=== PATIENT | male | born 1970 | race Hispanic/Latino ===

== ENCOUNTER 2019-09-13 16:43 | Inpatient (IN) | payer OTHER ==
[~2019-09-13] VITALS: Ht 167.6 cm; Wt 65.5 kg
[2019-09-13] VITALS (9 sets, daily range): BP systolic 104–134; BP diastolic 58–75
[2019-09-13] MEDS ORDERED: NITROGLYCERIN 2 MG/VIAL VIAL IV ONE (16:52)
[2019-09-13] MEDS ORDERED: HEPARIN SODIUM 1000UNIT/ML 10ML VIAL ONE (16:52)
[2019-09-13] MEDS ORDERED: IOHEXOL-350 50ML VIAL IV ONE (16:52)
[2019-09-13] MEDS ORDERED: MIDAZOLAM HCL 1 MG/ML 2ML VIAL ONE (16:53)
[2019-09-13] MEDS ORDERED: IOHEXOL 350 MG/ML 100ML INFUS..BTL IV ONE (16:53)
[2019-09-13] MEDS ORDERED: LIDOCAINE HCL 2% 20ML ONE (16:53)
[2019-09-13] MEDS ORDERED: FENTANYL CITRATE PF 50 MCG/1 ML 2ML VIAL ONE (16:55)
[2019-09-13 17:11] LABS: BASOPHILS % (AUTO) 0.3 % (0.0-5.0); EOSINOPHILS % (AUTO) 1.8 % (0.0-8.0); HEMATOCRIT 47.4 % (42-54); LYMPHOCYTES % (AUTO) 20.4 % (21.0-51.0); MEAN CORPUSCULAR HEMOGLOBIN 30.1 pg (27.0-33.0); MEAN CORPUSCULAR HGB CONC 33.8 g/dL (32.0-36.0); MEAN CORPUSCULAR VOLUME 89.1 fL (79-99); MONOCYTES % (AUTO) 4.8 % (3.0-13.0); NEUTROPHILS % (AUTO) 72.5 % (40.0-77.0); PLATELET COUNT (AUTO) 206 K/uL (130-400); RED BLOOD CELL COUNT(AUTO) 5.32 MIL/uL (4.50-6.20); RED CELL DISTRIBUTION WIDTH 13.2 % (11.0-15.5); WHITE BLOOD COUNT (AUTO) 10.2 K/uL (4.8-10.8)
[2019-09-13 17:19] LABS: CREATININE 1.1 mg/dL (0.5-1.5); POTASSIUM 3.8 mmol/L (3.5-5.1)
[2019-09-13 17:23] LABS: INR 0.96 (0.85-1.15); PARTIAL THROMBOPLASTIN TIME 29.2 SEC (26.3-35.5); PROTHROMBIN TIME 10.4 SEC (9.6-11.6)
[2019-09-13 17:24] LABS: ALBUMIN 4.2 g/dL (3.5-5.0); BILIRUBIN,TOTAL 0.4 mg/dL (0.2-1.0); TOTAL PROTEIN, SERUM 7.8 g/dL (6.0-8.3)
[2019-09-13] MEDS ORDERED: SODIUM CHLORIDE 0.9% 10 ML VIAL IVP PRN (17:30)
[2019-09-13 18:20] LABS: HEMOGLOBIN A1C 5.7 % (4.0-6.0)
[2019-09-13 18:28] LABS: THYROID STIMULATING HORMONE 1.07 uIU/mL (0.36-3.74)
[2019-09-13] MEDS ORDERED: CARVEDILOL 12.5 MG TABLET PO SCH (21:00)
[2019-09-13] MEDS ORDERED: CARV12.580 PO (23:59)
[2019-09-13] MEDS ORDERED: ATOR-2 PO (23:59)
[2019-09-13] MEDS ORDERED: ASPI-556 PO (23:59)
[2019-09-14] VITALS (52 sets, daily range): BP systolic 87–172; BP diastolic 40–90
[2019-09-14 03:49] LABS: HEMATOCRIT 42.7 % (42-54); MEAN CORPUSCULAR HEMOGLOBIN 29.6 pg (27.0-33.0); MEAN CORPUSCULAR HGB CONC 33.3 g/dL (32.0-36.0); MEAN CORPUSCULAR VOLUME 89.1 fL (79-99); RED BLOOD CELL COUNT(AUTO) 4.79 MIL/uL (4.50-6.20); RED CELL DISTRIBUTION WIDTH 13.2 % (11.0-15.5); WHITE BLOOD COUNT (AUTO) 6.3 K/uL (4.8-10.8)
[2019-09-14 04:01] LABS: INR 1.01 (0.85-1.15); PARTIAL THROMBOPLASTIN TIME 29.2 SEC (26.3-35.5); PROTHROMBIN TIME 10.9 SEC (9.6-11.6)
[2019-09-14 04:09] LABS: ALBUMIN 3.5 g/dL (3.5-5.0); BILIRUBIN,TOTAL 0.5 mg/dL (0.2-1.0); CREATININE 0.9 mg/dL (0.5-1.5); POTASSIUM 3.9 mmol/L (3.5-5.1); TOTAL PROTEIN, SERUM 6.6 g/dL (6.0-8.3)
[2019-09-14] MEDS ORDERED: EPINEPHRINE 10 MG in SODIUM CHLORIDE 0.9% 240 ML IV PRN (06:45)
[2019-09-14] MEDS ORDERED: AMINOCAPROIC ACID 15,000 MG in SODIUM CHLORIDE 0.9% 500ML 420 ML IV PRN (06:45)
[2019-09-14] MEDS ORDERED: NOREPINEPHRINE BITARTRATE 8 MG in DEXTROSE 5%-WATER 250 ML IV PRN ×2 (06:45→21:15)
--- NOTE | 2019-09-14 07:30 | NUR ---
preop brought pt to holding in no distress via bed. pt here for cabg due to cad and unstable angina
--- NOTE | 2019-09-14 07:33 | NUR ---
INFO PATIENT OUT TO SURGERY.
[2019-09-14] MEDS ORDERED: NITROGLYCERIN 50 MG/D5% WATER 1 BOT ONE (07:48)
[2019-09-14] MEDS ORDERED: ESMOLOL HCL 10 MG/ML 10 ML VIAL ONE (08:05)
[2019-09-14] MEDS ORDERED: LIDOCAINE PF 2% 5ML ABBOJECT ONE ×2 (08:06→08:07)
[2019-09-14] MEDS ORDERED: ROCURONIUM 10MG/1ML SYR 10 MG/ML ML ONE (08:06)
[2019-09-14] MEDS ORDERED: PROTAMINE SULFATE 10 MG/ML 25ML VIAL IV ONE (08:06)
[2019-09-14] MEDS ORDERED: EPINEPHRINE 1 MG/ML AMPULE ONE (08:06)
[2019-09-14] MEDS ORDERED: HEPARIN SODIUM 1000UNIT/ML 10ML VIAL ONE (08:06)
[2019-09-14] MEDS ORDERED: AMINOCAPROIC ACID 250 MG/ML 20 ML VIAL IV ONE (08:06)
[2019-09-14] MEDS ORDERED: PROPOFOL 10 MG/ML 20ML VIAL IV ONE (08:06)
[2019-09-14] MEDS ORDERED: NOREPINEPHRINE BITARTRATE 1 MG/1 ML ML IV ONE (08:06)
[2019-09-14] MEDS ORDERED: MIDAZOLAM HCL 1 MG/ML 2ML VIAL ONE (08:06)
[2019-09-14] MEDS ORDERED: SODIUM BICARB 50MEQ 50ML VIAL ONE (08:06)
[2019-09-14] MEDS ORDERED: FENTANYL CITRATE PF 50 MCG/1 ML 20ML VIAL IJ ONE (08:06)
[2019-09-14] MEDS ORDERED: ETOMIDATE 2 MG/ML 10 ML VIAL ONE (08:08)
[2019-09-14] MEDS ORDERED: METOPROLOL TARTRATE 1 MG/ML 5ML VIAL IV ONE (08:10)
[2019-09-14] MEDS ORDERED: AMIODARONE HCL 50 MG/ML 3 ML VIAL ONE (08:11)
[2019-09-14] MEDS ORDERED: CEFAZOLIN SODIUM 1 GM VIAL ONE ×3 (08:12→11:56)
[2019-09-14] MEDS ORDERED: PAPAVERINE HCL 30 MG/ML 2ML VIAL ONE (08:57)
[2019-09-14] MEDS ORDERED: PANTOPRAZOLE SODIUM 40 MG TABLET.DR PO SCH (09:00)
[2019-09-14] MEDS: ASPIRIN 325MG EC TAB 325 MG TABLET.DR PO SCH (09:00)
[2019-09-14] MEDS: ATORVASTATIN CALCIUM 40 MG TABLET PO SCH (09:00)
[2019-09-14] MEDS: EZETIMIBE 10 MG TAB PO SCH (09:00)
[2019-09-14] MEDS ORDERED: ENOXAPARIN SODIUM 40 MG/0.4 ML SYRINGE SQ SCH (09:00)
[2019-09-14 09:05] LABS: ABG BASE EXCESS -2.8 mmol/L (-2.0-3.0); ABG HCO3 21.5 mmol/L (21.0-28.0); ABG OXYGEN SATURATION 99.4 % (95.0-99.0); ABG PCO2 36 mmHg (35-48)
[2019-09-14] MEDS ORDERED: DELNIDO FORMULA 1 BAG IV ONE (09:05)
[2019-09-14] MEDS ORDERED: OCTYL 2-CYANOACRYLATE 1 EACH TP ONE (09:48)
[2019-09-14] MEDS ORDERED: ROCURONIUM BROMIDE 10MG/1ML 5ML VL ONE (09:51)
[2019-09-14] MEDS ORDERED: SODIUM CHLORIDE 0.9% 500ML 500 ML IV SCH (10:25)
--- NOTE | 2019-09-14 10:27 | NUR ---
DCP Pt currently in procedure for CABG. Pending Criteria to be uploaded. CM pending to assess pt after procedure once stable. Endorsed to Veena ANGEL. CM to cont to follow up. Addendum: 09/14/19 at 1029 by ABRAM OH LVN CM Amended: Links added.
[2019-09-14 10:28] LABS: ABG BASE EXCESS -3.1 mmol/L (-2.0-3.0); ABG HCO3 20.1 mmol/L (21.0-28.0); ABG OXYGEN SATURATION 98.3 % (95.0-99.0); ABG PCO2 30 mmHg (35-48)
[2019-09-14] MEDS ORDERED: SODIUM CHLORIDE 0.9% 1000ML 1,000 ML IV SCH (10:30)
[2019-09-14] MEDS ORDERED: MORPHINE SULFATE 2 MG/ML 1ML SYG IV PRN (10:30)
[2019-09-14] MEDS ORDERED: POTASSIUM PHOS 15 mMOL+NS250ML 250 ML IV PRN (10:30)
[2019-09-14] MEDS ORDERED: ACETAMINOPHEN 325 MG TAB PO PRN ×2 (10:30)
[2019-09-14] MEDS ORDERED: SODIUM BICARB 50MEQ 50ML VIAL IV PRN (10:30)
[2019-09-14] MEDS ORDERED: AMINOCAPROIC ACID 15,000 MG in SODIUM CHLORIDE 0.9% 250 ML IV SCH (10:30)
[2019-09-14] MEDS ORDERED: MORPHINE SULFATE 4 MG/1ML SYG IV PRN (10:30)
[2019-09-14] MEDS ORDERED: ALBUMIN (HUMAN) 5% 250 ML IV PRN (10:30)
[2019-09-14] MEDS ORDERED: GLUCAGON 1MG KIT 1 MG ML IM PRN (10:30)
[2019-09-14] MEDS ORDERED: NOREPINEPHRINE 4MG/NS 250ML 250 ML IV PRN (10:30)
[2019-09-14] MEDS ORDERED: NITROGLYCERIN 50 MG/D5% WATER 250 BOT IV SCH (10:30)
[2019-09-14] MEDS ORDERED: INSULIN REGULAR, HUMAN 3ML 100 UNIT in SODIUM CHLORIDE 0.9% 99 ML IV SCH ×2 (10:30)
[2019-09-14] MEDS ORDERED: ONDANSETRON HCL 4 MG/2 ML VIAL IV PRN (10:30)
[2019-09-14] MEDS ORDERED: DEXTROSE 50%-WATER 50 ML DISP.SYRIN IV PRN (10:30)
[2019-09-14] MEDS ORDERED: EPINEPHRINE 10 MG in DEXTROSE 5%-WATER 250 ML IV PRN (10:30)
[2019-09-14] MEDS ORDERED: ACETAMINOPHEN 650 MG SUPPOSITORY RC PRN (10:30)
[2019-09-14] MEDS ORDERED: PROPOFOL 1000 MG/100 ML 100 ML IV PRN (10:30)
[2019-09-14] MEDS ORDERED: MAGNESIUM 2GM PREMIX 50ML 50 ML IV PRN (10:30)
[2019-09-14] MEDS ORDERED: TRAMADOL HCL 50 MG TABLET PO PRN (10:30)
[2019-09-14] MEDS ORDERED: SODIUM CHLORIDE 0.9% 10 ML VIAL IVP PRN (10:30)
[2019-09-14] MEDS ORDERED: CALCIUM GLUCONATE 1 GM in SODIUM CHLORIDE 0.9% 50 ML IV PRN (10:30)
[2019-09-14] MEDS ORDERED: SODIUM CHLORIDE 0.9% 1000ML 1,000 ML IV ONE (10:40)
[2019-09-14 11:03] LABS: ABG BASE EXCESS -2.7 mmol/L (-2.0-3.0); ABG HCO3 20.9 mmol/L (21.0-28.0); ABG PCO2 32 mmHg (35-48)
[2019-09-14 11:52] LABS: ABG BASE EXCESS 0.2 mmol/L (-2.0-3.0); ABG HCO3 24.2 mmol/L (21.0-28.0); ABG OXYGEN SATURATION 98.6 % (95.0-99.0); ABG PCO2 37 mmHg (35-48)
[2019-09-14 12:24] LABS: ABG HCO3 24.4 mmol/L (21.0-28.0); ABG OXYGEN SATURATION 98.6 % (95.0-99.0); ABG PCO2 30 mmHg (35-48)
[2019-09-14 13:19] LABS: MEAN CORPUSCULAR HGB CONC 33.5 g/dL (32.0-36.0); RED CELL DISTRIBUTION WIDTH 13.1 % (11.0-15.5)
[2019-09-14 13:21] LABS: HEMATOCRIT 36.4 % (42-54); MEAN CORPUSCULAR HEMOGLOBIN 29.9 pg (27.0-33.0); MEAN CORPUSCULAR VOLUME 89.2 fL (79-99); RED BLOOD CELL COUNT(AUTO) 4.08 MIL/uL (4.50-6.20); WHITE BLOOD COUNT (AUTO) 14.7 K/uL (4.8-10.8)
[2019-09-14 13:28] LABS: ABG BASE EXCESS -3.3 mmol/L (-2.0-3.0); ABG HCO3 21.1 mmol/L (21.0-28.0); ABG OXYGEN SATURATION 98.7 % (95.0-99.0); ABG PCO2 36 mmHg (35-48)
[2019-09-14 13:33] LABS: CREATININE 1.1 mg/dL (0.5-1.5); INR 1.29 (0.85-1.15); PARTIAL THROMBOPLASTIN TIME 24.8 SEC (26.3-35.5); PHOSPHORUS 3.8 mg/dL (2.5-4.9); POTASSIUM 3.5 mmol/L (3.5-5.1); PROTHROMBIN TIME 13.8 SEC (9.6-11.6)
[2019-09-14] MEDS: POTASSIUM CHLORIDE 20MEQ/100ML 100 ML IV PRN ×2 (13:59→15:09)
[2019-09-14] MEDS ORDERED: PHARMACY COMMUNICATION MISC SCH (14:15)
[2019-09-14 14:56] LABS: ABG BASE EXCESS 1.2 mmol/L (-2.0-3.0); ABG HCO3 24.9 mmol/L (21.0-28.0); ABG OXYGEN SATURATION 97.9 % (95.0-99.0); ABG PCO2 37 mmHg (35-48)
[2019-09-14] MEDS: TRAMADOL HCL 50 MG TABLET PO PRN (16:05)
[2019-09-14 16:06] LABS: ABG HCO3 25.6 mmol/L (21.0-28.0); ABG OXYGEN SATURATION 98.9 % (95.0-99.0); ABG PCO2 41 mmHg (35-48)
[2019-09-14 17:14] LABS: ABG BASE EXCESS 1.9 mmol/L (-2.0-3.0); ABG HCO3 28.2 mmol/L (21.0-28.0); ABG OXYGEN SATURATION 98.3 % (95.0-99.0); ABG PCO2 51 mmHg (35-48)
[2019-09-14] MEDS ORDERED: ALBUMIN (HUMAN) 5% 250 ML IV ONE (19:17)
[2019-09-14] MEDS: CEFAZOLIN SODIUM 1 GM VIAL IV SCH (19:46)
[2019-09-14] MEDS ORDERED: FAMOTIDINE/PF 20 MG/2 ML VIAL IV SCH (21:00)
[2019-09-14 21:15] LABS: ABG BASE EXCESS 0.7 mmol/L (-2.0-3.0); ABG HCO3 26.4 mmol/L (21.0-28.0); ABG PCO2 47 mmHg (35-48)
[2019-09-15] VITALS (84 sets, daily range): BP systolic 84–125; BP diastolic 54–87
[2019-09-15] MEDS: TRAMADOL HCL 50 MG TABLET PO PRN (00:12)
[2019-09-15 04:13] LABS: ABG BASE EXCESS 4.9 mmol/L (-2.0-3.0); ABG HCO3 30.6 mmol/L (21.0-28.0); ABG OXYGEN SATURATION 96.9 % (95.0-99.0); ABG PCO2 49 mmHg (35-48)
[2019-09-15] MEDS: CEFAZOLIN SODIUM 1 GM VIAL IV SCH ×2 (05:04→12:48)
[2019-09-15 05:11] LABS: HEMATOCRIT 33.7 % (42-54); MEAN CORPUSCULAR HEMOGLOBIN 29.4 pg (27.0-33.0); MEAN CORPUSCULAR HGB CONC 32.3 g/dL (32.0-36.0); MEAN CORPUSCULAR VOLUME 90.8 fL (79-99); RED BLOOD CELL COUNT(AUTO) 3.71 MIL/uL (4.50-6.20); RED CELL DISTRIBUTION WIDTH 13.7 % (11.0-15.5); WHITE BLOOD COUNT (AUTO) 7.8 K/uL (4.8-10.8)
[2019-09-15 05:22] LABS: INR 1.09 (0.85-1.15); PARTIAL THROMBOPLASTIN TIME 29.4 SEC (26.3-35.5); PROTHROMBIN TIME 11.7 SEC (9.6-11.6)
[2019-09-15 06:19] LABS: CREATININE 1.3 mg/dL (0.5-1.5); MAGNESIUM 2.2 mg/dL (1.80-2.40); PHOSPHORUS 4.1 mg/dL (2.5-4.9); POTASSIUM 4.2 mmol/L (3.5-5.1)
--- NOTE | 2019-09-15 07:00 | NUR ---
ASSESSMENT OOB in cardiac chair. Drowsy but arousable - oriented and appropriate. ST on tele - fair apical heart tones. Denies acute chest pain, pressure or tightness. Denies SOB or palpitations. On NC O2 @1lpm. Diminished bibasilar breath sounds. VS/hemodynamics as recorded. Pt on IV epinephrine gtt @0.03mcg/kg/min - levophed gtt weaned off by previous shift RN. Right IJ CVP line in use. Sternal drsg with scant, dried sanguineous drainage. CT's x3 patent - serosanguineous drainage. No evidence of air leak/SQ emphysema. CT's to 20cm suction. Epicardial leads taped securely to chest wall. Abd soft - diminished bowel sounds. Denies nausea. F/C patent - yellow urine. Dry surgical drsgs to LLE. Bruising noted surrounding EVH sites. LIDIA hose/SCD's in use to BLE's. PIV to RAC patent. Insulin gtt infusing per protocol. Left radial arterial line patent. Assessment completed/recorded.
--- NOTE | 2019-09-15 07:45 | NUR ---
MD ROUNDS in to see pt - updated. Orders received regarding pain management and med regimen.
[2019-09-15] MEDS ORDERED: HYDROCODONE/ACETAMINOPHEN 5/325 MG TAB ONE (08:20)
[2019-09-15] MEDS: EZETIMIBE 10 MG TAB PO SCH (08:26)
[2019-09-15] MEDS: ATORVASTATIN CALCIUM 40 MG TABLET PO SCH (08:26)
[2019-09-15] MEDS: ASPIRIN 325MG EC TAB 325 MG TABLET.DR PO SCH (08:26)
[2019-09-15] MEDS: FAMOTIDINE 20MG TAB 20 MG TAB PO SCH (09:42)
--- NOTE | 2019-09-15 10:30 | NUR ---
TRANSFER Transferred by chair to room 218. Needed items within reach. Oriented to room.
[2019-09-15] MEDS: HYDROCODONE/ACETAMINOPHEN 5/325 MG TAB PO PRN ×2 (12:49→18:26)
--- NOTE | 2019-09-15 14:30 | NUR ---
ACTIVITY Back to bed with assistance. Positioned for comfort. Needed items within reach. Side rails up for safety. in to see pt - updated. Pt examined by MD. No additional orders received. No complaints or concerns voiced by pt.
--- NOTE | 2019-09-15 15:15 | NUR ---
STATUS Sleeping soundly. No evidence of distress. Call light within reach.
--- NOTE | 2019-09-15 18:30 | NUR ---
PT CARE Medicated per PRN order for c/o increasing incisional pain. Repositioned for comfort. Needed items within reach.
[2019-09-15 21:18] LABS: CREATININE 1.2 mg/dL (0.5-1.5); MAGNESIUM 2.1 mg/dL (1.80-2.40); PHOSPHORUS 3.3 mg/dL (2.5-4.9); POTASSIUM 3.7 mmol/L (3.5-5.1)
[2019-09-16] VITALS (21 sets, daily range): BP systolic 103–133; BP diastolic 63–94
[2019-09-16] MEDS: POTASSIUM CHLORIDE 20MEQ/100ML 100 ML IV PRN (00:32)
[2019-09-16] MEDS: HYDROCODONE/ACETAMINOPHEN 5/325 MG TAB PO PRN ×5 (00:32→20:33)
[2019-09-16 05:15] LABS: HEMATOCRIT 30.9 % (42-54); MEAN CORPUSCULAR HGB CONC 32.4 g/dL (32.0-36.0); MEAN CORPUSCULAR VOLUME 92.8 fL (79-99); RED BLOOD CELL COUNT(AUTO) 3.33 MIL/uL (4.50-6.20); RED CELL DISTRIBUTION WIDTH 13.4 % (11.0-15.5)
[2019-09-16 06:07] LABS: CREATININE 1.2 mg/dL (0.5-1.5); PHOSPHORUS 2.5 mg/dL (2.5-4.9)
[2019-09-16] MEDS: EZETIMIBE 10 MG TAB PO SCH (08:31)
[2019-09-16] MEDS: FAMOTIDINE 20MG TAB 20 MG TAB PO SCH (08:32)
[2019-09-16] MEDS: ASPIRIN 325MG EC TAB 325 MG TABLET.DR PO SCH (08:32)
[2019-09-16] MEDS ORDERED: PHARMACY COMMUNICATION MISC SCH (08:45)
[2019-09-16] MEDS ORDERED: ENOXAPARIN SODIUM 30 MG/0.3 ML SQ SCH (10:00)
--- NOTE | 2019-09-16 11:15 | NUR ---
PT WAS MEDICATED EARLIER FOR CHEST TUBE REMOVAL AND HAD CHEST TUBES REMOVED X 3 AND DAWSON CATHETER WAS ALSO DC'D AND T WAS ADVISED THAT HE NEEDED TO VOID WITHIN 6 HOURS OR HE WOULD HAVE TO GET A DAWSON REINSERTED. PT VERBALIZED UNDERSTANDING. DR. REECE HERE AND NO NEW ORDERS NOTED.
[2019-09-16] MEDS: INSULIN HUMULIN R 100 UNIT/ML 3ML SQ SCH ×3 (11:30→20:43)
[2019-09-16] MEDS ORDERED: FUROSEMIDE 10 MG/ML 2ML VIAL IV SCH ×2 (12:00→16:00)
[2019-09-16] MEDS: METOPROLOL TARTRATE 25 MG TAB PO SCH (20:32)
[2019-09-17] VITALS (7 sets, daily range): BP systolic 92–133; BP diastolic 63–76
[2019-09-17] MEDS: HYDROCODONE/ACETAMINOPHEN 5/325 MG TAB PO PRN ×2 (03:41→19:51)
[2019-09-17 04:58] LABS: HEMATOCRIT 31.3 % (42-54); MEAN CORPUSCULAR HEMOGLOBIN 29.7 pg (27.0-33.0); MEAN CORPUSCULAR HGB CONC 32.6 g/dL (32.0-36.0); MEAN CORPUSCULAR VOLUME 91.3 fL (79-99); RED BLOOD CELL COUNT(AUTO) 3.43 MIL/uL (4.50-6.20); WHITE BLOOD COUNT (AUTO) 9.6 K/uL (4.8-10.8)
[2019-09-17 05:32] LABS: CREATININE 1.1 mg/dL (0.5-1.5); POTASSIUM 3.6 mmol/L (3.5-5.1)
[2019-09-17] MEDS: INSULIN HUMULIN R 100 UNIT/ML 3ML SQ SCH ×4 (05:54→21:00)
[2019-09-17] MEDS: ASPIRIN 325MG EC TAB 325 MG TABLET.DR PO SCH (09:37)
[2019-09-17] MEDS: METOPROLOL TARTRATE 25 MG TAB PO SCH ×2 (09:37→19:50)
[2019-09-17] MEDS: FAMOTIDINE 20MG TAB 20 MG TAB PO SCH (09:37)
[2019-09-17] MEDS: EZETIMIBE 10 MG TAB PO SCH (09:37)
[2019-09-17] MEDS: ENOXAPARIN SODIUM 30 MG/0.3 ML SQ SCH (09:39)
[2019-09-17] MEDS ORDERED: METOPROLOL TARTRATE 25 MG TAB PO SCH (11:15)
[2019-09-17] MEDS: ATORVASTATIN CALCIUM 40 MG TABLET PO SCH (19:50)
[2019-09-18] MEDS: HYDROCODONE/ACETAMINOPHEN 5/325 MG TAB PO PRN ×2 (00:33→20:21)
--- NOTE | 2019-09-18 00:39 | NUR ---
CLIP PACER WIRES Pacing wires clipped caitie Israel RN. Addendum: 09/18/19 at 0040 by LEDA OVALLE RN RN Amended: Links added.
[2019-09-18 04:00] VITALS: BP 105/68
[2019-09-18 04:16] LABS: HEMATOCRIT 27.8 % (42-54); MEAN CORPUSCULAR HEMOGLOBIN 30.6 pg (27.0-33.0); MEAN CORPUSCULAR HGB CONC 33.8 g/dL (32.0-36.0); MEAN CORPUSCULAR VOLUME 90.6 fL (79-99); RED BLOOD CELL COUNT(AUTO) 3.07 MIL/uL (4.50-6.20); WHITE BLOOD COUNT (AUTO) 6.3 K/uL (4.8-10.8)
[2019-09-18 04:29] LABS: CREATININE 0.9 mg/dL (0.5-1.5); POTASSIUM 3.2 mmol/L (3.5-5.1)
[2019-09-18] MEDS ORDERED: POTASSIUM CHLORIDE 20MEQ/100ML 100 ML IV PRN (04:45)
[2019-09-18] MEDS ORDERED: POTASSIUM CHLORIDE 10% ELIXIR 20 MEQ/15 ML UDCUP PO PRN (04:45)
[2019-09-18] MEDS ORDERED: LIDOCAINE HCL-MPF 1% 2ML VIAL IV PRN (04:45)
[2019-09-18] MEDS ORDERED: POTASSIUM CHLORIDE 20 MEQ ERTAB PO ONE (05:29)
[2019-09-18] MEDS: INSULIN HUMULIN R 100 UNIT/ML 3ML SQ SCH ×4 (05:43→20:50)
[2019-09-18] MEDS ORDERED: LACTULOSE 20 GM/30 ML UDCUP PO PRN (07:45)
[2019-09-18 08:00] VITALS: BP 108/68
[2019-09-18] MEDS: EZETIMIBE 10 MG TAB PO SCH (08:10)
[2019-09-18] MEDS: FAMOTIDINE 20MG TAB 20 MG TAB PO SCH (08:10)
[2019-09-18] MEDS: ASPIRIN 325MG EC TAB 325 MG TABLET.DR PO SCH (08:10)
[2019-09-18] MEDS: METOPROLOL TARTRATE 25 MG TAB PO SCH (08:10)
[2019-09-18] MEDS: POTASSIUM CHLORIDE 20 MEQ ERTAB PO PRN ×2 (08:11→16:25)
[2019-09-18] MEDS: ENOXAPARIN SODIUM 30 MG/0.3 ML SQ SCH (08:13)
--- NOTE | 2019-09-18 10:48 | NUR ---
DR. SZYMANSKI IN ROOM ASSESSING/SPEAKING WITH PT. RE:PLAN OF CARE. QUESTIONS ANSWERED BY DR. SZYMANSKI, PT. VERBALIZED UNDERSTANDING.
[2019-09-18] MEDS ORDERED: METOPROLOL TARTRATE 25 MG TAB PO SCH ×2 (11:00→21:00)
[2019-09-18 12:00] VITALS: BP 109/68
[2019-09-18 16:00] VITALS: BP 113/51
[2019-09-18] MEDS: FUROSEMIDE 20 MG TABLET PO SCH (16:25)
--- NOTE | 2019-09-18 18:21 | NUR ---
CM NOTE/IA MEET WITH PATIENT IN ROOM. PER PATIENT IS INDEPENDENT WITH ADLS, LIVES WITH SPOUSE AND 3 MINORS, NO HOME HEALTH OR DME IN USE, WORKS [employer] AND FEELS SAFE TO RETURN HOME ONCE DISCHARGED. SELF REFFERAL AND GOOD RX COUPONS GIVEN TO PATIENT, VERBALIZED UNDERSTANDING. Addendum: 09/18/19 at 1822 by SHAY STATON RN CM Amended: Links added.
[2019-09-18 19:52] VITALS: BP 102/61
[2019-09-18] MEDS: ATORVASTATIN CALCIUM 40 MG TABLET PO SCH (20:21)
[2019-09-18 23:22] VITALS: BP 101/58
[2019-09-19 03:43] VITALS: BP 91/59
[2019-09-19] MEDS: INSULIN HUMULIN R 100 UNIT/ML 3ML SQ SCH ×4 (06:32→20:39)
[2019-09-19 07:30] VITALS: BP 112/66
[2019-09-19] MEDS: ASPIRIN 325MG EC TAB 325 MG TABLET.DR PO SCH (08:57)
[2019-09-19] MEDS: FUROSEMIDE 20 MG TABLET PO SCH ×2 (08:57→16:35)
[2019-09-19] MEDS: EZETIMIBE 10 MG TAB PO SCH (08:58)
[2019-09-19] MEDS: METOPROLOL TARTRATE 50 MG TAB PO SCH ×2 (09:01→20:39)
[2019-09-19] MEDS: ENOXAPARIN SODIUM 30 MG/0.3 ML SQ SCH (09:02)
[2019-09-19 11:02] LABS: BASOPHILS % (AUTO) 0.2 % (0.0-5.0); EOSINOPHILS % (AUTO) 6.4 % (0.0-8.0); HEMATOCRIT 29.9 % (42-54); LYMPHOCYTES % (AUTO) 15.4 % (21.0-51.0); MEAN CORPUSCULAR HEMOGLOBIN 29.5 pg (27.0-33.0); MEAN CORPUSCULAR HGB CONC 32.8 g/dL (32.0-36.0); MEAN CORPUSCULAR VOLUME 90.1 fL (79-99); MONOCYTES % (AUTO) 8.5 % (3.0-13.0); PLATELET COUNT (AUTO) 206 K/uL (130-400); RED BLOOD CELL COUNT(AUTO) 3.32 MIL/uL (4.50-6.20); RED CELL DISTRIBUTION WIDTH 12.9 % (11.0-15.5); WHITE BLOOD COUNT (AUTO) 5.8 K/uL (4.8-10.8)
[2019-09-19 11:13] LABS: POTASSIUM 4.6 mmol/L (3.5-5.1)
[2019-09-19 11:30] VITALS: BP 105/63
[2019-09-19] MEDS: FAMOTIDINE 20MG TAB 20 MG TAB PO SCH (12:43)
[2019-09-19] MEDS: HYDROCODONE/ACETAMINOPHEN 5/325 MG TAB PO PRN (12:48)
[2019-09-19 16:00] VITALS: BP 111/65
--- NOTE | 2019-09-19 16:55 | NUR ---
CARDIOLOGY PER DR SZYMANSKI, PT CAN BE DISCHARGED HOME AND F/U WITH DR SANTOS IN 1 WEEK
[2019-09-19] MEDS ORDERED: EZET10TA48 PO (17:29)
[2019-09-19] MEDS ORDERED: ASPI-1026 PO (17:29)
[2019-09-19] MEDS ORDERED: METO-391 PO (17:29)
[2019-09-19 19:00] VITALS: BP 114/67
[2019-09-19] MEDS: ATORVASTATIN CALCIUM 40 MG TABLET PO SCH (20:39)
[2019-09-19 23:59] VITALS: BP 93/60
[2019-09-20] MEDS: HYDROCODONE/ACETAMINOPHEN 5/325 MG TAB PO PRN (00:16)
[2019-09-20 04:00] VITALS: BP 94/64
[2019-09-20] MEDS: INSULIN HUMULIN R 100 UNIT/ML 3ML SQ SCH ×2 (06:43→11:25)
[2019-09-20 08:00] VITALS: BP 103/74
[2019-09-20] MEDS: METOPROLOL TARTRATE 50 MG TAB PO SCH (08:02)
[2019-09-20] MEDS: FUROSEMIDE 20 MG TABLET PO SCH (08:02)
[2019-09-20] MEDS: EZETIMIBE 10 MG TAB PO SCH (08:02)
[2019-09-20] MEDS: ASPIRIN 325MG EC TAB 325 MG TABLET.DR PO SCH (08:02)
[2019-09-20] MEDS: FAMOTIDINE 20MG TAB 20 MG TAB PO SCH (08:02)
[2019-09-20] MEDS: ENOXAPARIN SODIUM 30 MG/0.3 ML SQ SCH (08:03)
[2019-09-20 12:00] VITALS: BP 107/71
[2019-09-20] MEDS: TRAMADOL HCL 50 MG TABLET PO PRN (13:35)
[2019-09-20] MEDS ORDERED: SODIUM BICARB 8.4% 50ML SYRINGE IVP ONE (14:29)
[2019-09-20] MEDS ORDERED: AMINOCAPROIC ACID 250 MG/ML 20 ML VIAL IV ONE (14:29)
[2019-09-20] MEDS ORDERED: HEPARIN SODIUM 1000UNIT/ML 10ML VIAL IV ONE (14:29)
[2019-09-20] MEDS ORDERED: LIDOCAINE PF 2% 5ML ABBOJECT IVP ONE (14:29)
[2019-09-20] MEDS ORDERED: ALBUMIN (HUMAN) 25% 50 ML IV ONE (14:29)
[2019-09-20] MEDS ORDERED: PHENYLEPHRINE HCL 10 MG/ML 1ML VIAL IV ONE (14:29)
[2019-09-20] MEDS ORDERED: CALCIUM CHLORIDE 100 MG/ML 10 ML SYG IVP ONE (14:29)
[2019-09-20] MEDS ORDERED: MAGNESIUM SULFATE 1 GM/2 ML VIAL IM ONE (14:29)
[2019-09-20] MEDS ORDERED: MANNITOL 25% 50ML VIAL IV ONE (14:29)
== END 2019-09-20 14:30 | disposition home or self-care (01) | DRG 234 ==
LOC: EDH 16:43 → EDHIP 16:44 → 4AH 19:30 → 2CV 09-14 09:41 → 2CH 09-15 10:30 → 4AH 09-16 19:42
PROVIDERS: ADMIT Internal Medicine; ATTEND Internal Medicine
PROC: 02100Z9 Bypass Coronary Artery, One Artery from Left Internal Mammary, Open Approach (ICD-10-PCS; principal; 2019-09-13)
PROC: 4A023N7 Measurement of Cardiac Sampling and Pressure, Left Heart, Percutaneous Approach (ICD-10-PCS; 2019-09-13)
PROC: 021209W Bypass Coronary Artery, Three Arteries from Aorta with Autologous Venous Tissue, Open Approach (ICD-10-PCS; 2019-09-13)
PROC: 06BQ4ZZ Excision of Left Saphenous Vein, Percutaneous Endoscopic Approach (ICD-10-PCS; 2019-09-13)
PROC: 0PQ00ZZ Repair Sternum, Open Approach (ICD-10-PCS; 2019-09-13)
PROC: B2111ZZ Fluoroscopy of Multiple Coronary Arteries using Low Osmolar Contrast (ICD-10-PCS; 2019-09-13)
PROC: B41F1ZZ Fluoroscopy of Right Lower Extremity Arteries using Low Osmolar Contrast (ICD-10-PCS; 2019-09-13)
DX: I25.110 Atherosclerotic heart disease of native coronary artery with unstable angina pectoris (principal); I50.22 Chronic systolic (congestive) heart failure; I24.9 Acute ischemic heart disease, unspecified; I25.5 Ischemic cardiomyopathy; R94.39 Abnormal result of other cardiovascular function study; E78.00 Pure hypercholesterolemia, unspecified; I11.0 Hypertensive heart disease with heart failure; E11.9 Type 2 diabetes mellitus without complications; E78.5 Hyperlipidemia, unspecified; J98.4 Other disorders of lung; Z79.82 Long term (current) use of aspirin; Z79.899 Other long term (current) drug therapy; Y92.89 Other specified places as the place of occurrence of the external cause; Z83.3 Family history of diabetes mellitus; Z82.49 Family history of ischemic heart disease and other diseases of the circulatory system
CPT/HCPCS: 36415; 71045; 80048; 80053; 80061; 82330; 82435; 82803; 82947; 82948; 83036; 83605; 83735; 83880; 84100; 84132; 84295; 84443; 84484; 85018; 85025; 85027; 85347; 85384; 85610; 85730; 86850; 86900; 86901; 86922; 93005; 93306; 93356; 93454; 93880; 94002; 94010; 94150; 97039; 99156; 99157; A4357; A7048; C1729; C1757; C1760; C1894; G0378; J0171; J0282; J0610; J0690; J1644; J1650; J1815; J1940; J2001; J2150; J2250; J2270; J2370; J2405; J2440; J2704; J2720; J3010; J3475; J3480; J3490; J7030; J7040; J7060; J7070; J7120; P9045; P9047; Q9967